=== PATIENT | female | born 1975 | race Caucasian/White ===

== ENCOUNTER → 2020-12-04 10:20 | Outpatient (CLI) | payer OTHER, SELFPAY ==
[2020-11-24 08:12] VITALS: BMI 43.5
== END ==
PROVIDERS: PCP Student in an Organized Health Care Education/Training Program; Referring Provider Nurse Practitioner Acute Care; Visit Provider Nurse Practitioner Acute Care
DX: G47.33 Obstructive sleep apnea (adult) (pediatric) (principal)
CPT/HCPCS: 95806

== ENCOUNTER 2022-01-07 10:31 | Day surgery (SDC) | payer OTHER, SELFPAY ==
--- NOTE | 2021-12-30 12:49 | PCM.HP.BLA ---
History and Physical Date of Admission: 01/07/22 Pre-Op History and Physical ? HPI: The patient is a 46 year old female presenting for surgical discussion for abnormal uterine bleeding endometrial polyp. Patient reports had heavy bleeding where she was soaking through overnight pads. Patient states no bleeding today. Pelvic ultrasound showed a large endometrial polyp present. Patient reports does not currently use any hormonal therapy. Patient declines any hormonal therapy like a Mirena IUD at the time of surgery. Patient would like to proceed with surgical intervention. ? Pre-operative visit. She is scheduled for Hysteroscopy D&C and polypoectomy, for AUB, EM polyp on 01/08/22. Procedure discussed along with risks, benefits and complications. Other alternatives discussed for management. Consent form signed? Yes. ? ? PAST MEDICAL HISTORY PAST MEDICAL HISTORY Diagnosis Date ? Anemia 08/07/2012 ? Attention deficit disorder without mention of hyperactivity ? ? since age 2 ? Breast disorder age 17 ? PREVIOUS NEEDLE BIOPSY OF BREAST ? Celiac disease ? ? Depressive disorder, not elsewhere classified ? ? MOOD SWINGS ? FRACTURE TOE ? ? History of pre-eclampsia in prior , currently ? ? Pityriasis versicolor ? ? PMH - PAST MEDICAL HISTORY OF 04/09 ? 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 PMH - PAST MEDICAL HISTORY OF ? ? blood type: B pos ? PREECLAMPSIA 1996 ? Rosacea ? ? Thyroid disease 2011 ? HOSHIMOTOS SYNDROME ? ? PAST SURGICAL HISTORY PAST SURGICAL HISTORY Procedure Laterality Date ? LIVER BIOPSY ? 04/2014 ? benign ? PAST SURGICAL HISTORY OF ? 1991 ? needle biopsy of breast mass ? REM LESION TRUNK,ARM,LEG 0.6 -1.0CM ? 05/08 ? excision atypical nevus pubis/ Dr. Alonso ? ? ? CURRENT MEDICATIONS Current Outpatient Medications Medication Sig Dispense Refill ? Ferrous Sulfate (SLOW FE) 142 mg (45 mg iron) TbER Take 1 tablet by mouth twice daily. 120 tablet 0 ? iron bis-gly/FA/C/B12/Ca/succ (IRON-150 ORAL) Take by mouth. ? ? ? calcium carbonate/vitamin D3 (CALCIUM 500 + D ORAL) Take by mouth. ? ? ? hydroCHLOROthiazide 12.5 mg capsule Take 1 capsule by mouth once daily. 30 capsule 2 ? levothyroxine (SYNTHROID) 137 mcg tablet Take 1 tablet by mouth once daily. 90 tablet 3 ? methylphenidate (RITALIN) 20 mg tablet Take 1 tablet by mouth twice daily for 30 days. 60 tablet 0 ? triamcinolone acetonide (KENALOG) 0.1 % cream Apply 1 application to affected area twice daily. 60 g 1 ? PNV95/FERROUS FUMARATE/FA ( ORAL) Take by mouth once daily. ? ? ? phentermine-topiramate ER (QSYMIA) 11.25-69 mg 24 Hr Capsule Take 1 capsule by mouth once daily for 30 days. BMI 44.42 30 capsule 2 ? No current facility-administered medications for this visit. ? ? ALLERGIES: Gluten ? PERSONAL HISTORY: SOCIAL HISTORY Social History ? Tobacco Use ? Smoking status: Former Smoker ? ? Years: 2.00 ? ? Quit date: 09/14/1995 ? ? Years since quittin.3 ? Smokeless tobacco: Never Used Vaping Use ? Vaping Use: Never used Substance Use Topics ? Alcohol use: No ? Drug use: No ? FAMILY HISTORY: FAMILY HISTORY FAMILY HISTORY Problem Relation Age of Onset ? Breast Cancer Mother 50 ? 2000,2018 ? Colon Polyps Father ? ? Hypertension Father ? ? Stroke Maternal Grandmother ? ? Psychiatry Maternal Grandfather ? ? dementia ? other (parkinsons) Maternal Grandfather ? ? Cancer Paternal Grandmother ? ? OVARIAN ? Stroke Paternal Grandfather ? ? other (DEMENTIA) Paternal Uncle ? ? LEWY BODY DEMENTIA ? Breast Cancer Other ? ? MATERNAL COUSIN 2004 ? other (FRONTAL LOBE ATROPHY) Other ? ? 2ND COUSIN ? other (myasthemia gravis) Other ? ? cousin ? ? REVIEW OF SYMPTOMS: negative except as noted above PHYSICAL EXAMINATION: ? VITALS: Blood pressure 128/78, weight 284 lb (128.8 kg), last menstrual period 12/17/2021. ? GENERAL: The patient is well nourished, well hydrated in no acute distress. , NEURO: The patient is oriented to time, place, and person. ? ? IMPRESSION: AUB, EM polyp ? PLAN: Hysteroscopy, D&C, Polypectomy ? Pt has been counseled on risks/benefits and alternatives of surgery including but not limited to anesthesia, bleeding, infection, Uterine perforation with subsequent injury to pelvic structures including bowel, bladder, ureters and vessels. Pt wishes to proceed with surgery at this time. ? Pt declines Mirena IUD or other BC options at this time ? Pre and post op instructions reviewed ? ? ? I have reviewed and updated past medical and surgical history, medications and allergies Mansi Díaz MD ?8:33 AM
[2022-01-07] VITALS (7 sets, daily range): BP systolic 130–169; BP diastolic 72–95; PULSE 63–73; RESP 16–17; TEMP 36.3–36.8; O2SAT 99–100; BMI 44.9
[2022-01-07 11:13] LABS: Internal QC Validated? YES +Cl - CLEAR BKGD; Pregnancy, Urine Negative Negative
[2022-01-07] MEDS: 0.9% Normal Saline 1,000 ML 150 ML IV (11:20)
--- NOTE | 2022-01-07 12:00 | EMB_PTH ---
PATIENT: AMOR MONSON LOC: [facility] [place] U#:[id number] AGE/SX: 46/F ROOM: RE01/07/[address]: Dr. Mansi Buenrostro, MDDOB: 1975 BED: DIS: 01/07/2022 SPEC #: [id number] RECD: 01/07/22 13:06 STATUS: PIERCE CARLEEN #: [id number] DELIA: 01/07/22 12:[address]: Mansi Buenrostro DEPT: SURGICAL PATHOLOGY RECD BY: Jaylene Hooker ENTERED: 01/07/22 13:48 SP TYPE: ENDOM BX/C ABEL DR: Dr. Dilip Murguia, DO Tissues: Endometrium, NOS Procedures: Surgery Specimen Level IV HEADER OPERATION: Hysteroscopy, D & C Symphion, polypectomy PRE-OP DIAGNOSIS: Abnormal uterine bleeding, endometrial polyp TISSUE SUBMITTED: Endometrial curettings and polyp MICROSCOPIC DIAGNOSIS Endometrial curettings and polyp: Polypoid fragments of simple hyperplasia without atypia. AM:isabela 01/08/2022 MICROSCOPIC DESCRIPTION Slides are reviewed. GROSS DESCRIPTION Received in fixative is one container labeled with the patient's name and designated endometrial curettings and polyp. The specimen consists of multiple irregular fragments of light pink-mayfield soft tissue that in aggregate measure 9 x 6 x 0.2 cm. The specimen is totally submitted in three cassettes. / AM:isabela 01/07/2022 TC:5 CPT: 05706
--- NOTE | 2022-01-07 12:01 | EX.PCM.DISCH ---
Discharge Instructions Procedure D&C Diet Discharge Diet: No restrictions Activity May resume sexual activity in: 1 week Dressing / Incision Call your doctor if you observe: Fever of 101 or Higher, Inability to urinate, Using more than 1 pad per hour and Uncontrolled pain Follow Up Care Please Follow Up With: Mansi Buenrostro MD When: 1-2 weeks post OP if you need an appointment please call [phone] Test Results: Test results from this visit will be discussed in further detail at your follow-up appointment, if applicable. Discharge Plan Admission Attending Provider: Mansi Buenrostro Primary Care Provider: Dilip Murguia Discharge Orders/Prescriptions Prescriptions: No Action levothyroxine 137 mcg capsule 137 mcg PO DAILY RF: 0 methylphenidate HCl [Ritalin] 5 mg tablet 20 mg PO DAILY PRN (Reason: focus) RF: 0 Slow Fe 142 mg (45 mg iron) Tablet Extended Release 142 mg PO BID RF: 0
--- NOTE | 2022-01-07 12:02 | OP.PCM_ITS ---
Problems Associated Problem List Diagnoses (1) Abnormal uterine bleeding (AUB): (2) Endometrial polyp: Report of Operation Date of Procedure: 01/07/22 Pre-Operative Diagnosis: aub, endometrial polyp Post-Operative Diagnosis: same, endocervical polyp Surgery/Procedure Performed:: hysteroscopy, D&C, polypectomy Description of Surgical Findings:: endometrial and enodcervical polyps noted Surgeon: Mansi Buenrostro Type of Anesthesia: MAC Specimen's removed: Endometrial curettings, endometrial polyp, endocervical polyp Drains: none Estimated Blood Loss (mL): <5 Fluids Replaced: 700 Description of Procedure: Informed consent was obtained the patient was taken the operating room she was placed in supine position. She was given anesthesia. She was then placed in the [facility] where she was prepped and draped in the normal sterile fashion. At this time the weighted speculum was placed in the posterior fornix of vagina. Single-tooth tenaculum was used to gently grasp the anterior lip the cervix. At this time the uterine cavity was sounded to approximately 9 cm. Gentle dilatation was performed once adequate dilatation of the cervix was achieved the hysteroscope using normal saline as a distention medium was placed. Tubal ostia visualized. Endometrial and endocervical polypoid tissue noted. Symphion resecting device used to obtain endometrial curettings and to perform polypectomy. Tissue will be sent to pathology for evaluation. Tenaculum removed. Good hemostasis. Instrument, lap count correct x 2. Fluid deficiet 500cc. Vaginal Sweep was negative. Grafts/Implants Used: none Procedure Start Time: 12:13 Procedure Stop Time: 12:27 Complications none Admit VTE Documentation VTE Present on Admission: Yes VTE Mechan Device Prophylaxis: SCD's VTE Pharm Prophylaxis ordered?: No Reason prophylaxis not ordered:: Procedure Not Indicated
== END 2022-01-07 13:37 | disposition home or self-care (01) ==
LOC: SDC 10:33 → AC 10:35
PROVIDERS: PCP Student in an Organized Health Care Education/Training Program; Referring Provider Obstetrics & Gynecology; Visit Provider Obstetrics & Gynecology
PROC: 0UB98ZZ Excision of Uterus, Via Natural or Artificial Opening Endoscopic (ICD-10-PCS; CPT 58558; principal; 2022-01-07 11:45)
DX: N85.01 Benign endometrial hyperplasia (principal); N84.1 Polyp of cervix uteri; N84.0 Polyp of corpus uteri; E03.9 Hypothyroidism, unspecified; G47.33 Obstructive sleep apnea (adult) (pediatric); Z79.899 Other long term (current) drug therapy; Z87.891 Personal history of nicotine dependence
CPT/HCPCS: 58558; 00952; 81025; 88305; J7030; J2405

== ENCOUNTER → 2022-11-12 | Outpatient (CLI) | payer OTHER, SELFPAY ==
--- NOTE | 2022-11-12 10:30 | BI_ITS ---
MAMMOGRAPHY - BILATERAL SCREENING 3-D TOMOSYNTHESIS REASON FOR EXAM: Female, 47 years old. Routine screening PERTINENT HISTORY: No significant family history. TECHNIQUE: 2-D mammograms and 3-D Tomosynthesis of the breast (s) were performed. CAD was performed. COMPARISON: 10/10/2020 FINDINGS: The breast composition is heterogeneously dense that can obscure small breast masses. Scattered benign calcifications are seen. No dense spiculated masses or suspicious microcalcifications are identified. No architectural distortion is identified. There is no skin thickening or retraction. Stable large calcification in the left breast. There has been no significant change since the prior study. BI/SCRN MAMM (CAD)W/MENA BILAT IMPRESSION: No mammographic signs of malignancy. Routine yearly mammograms recommended. ASSESSMENT CATEGORY: BIRADS Category 2: Benign. A letter regarding these results will be sent to the patient by the facility within 30 days. FOLLOW UP RECOMMENDATION: Yearly follow up mammogram recommended. (A) Approximately 10% of breast cancers are not detected by mammography. A normal mammogram should not delay biopsy of a clinically suspicious abnormality. Electronically Signed: Gilberto Grady MD at 8:42 EDT ,
== END | disposition home or self-care (01) ==
PROVIDERS: PCP Student in an Organized Health Care Education/Training Program; Referring Provider Nurse Practitioner Family; Visit Provider Nurse Practitioner Family
DX: Z12.31 Encounter for screening mammogram for malignant neoplasm of breast (principal)
CPT/HCPCS: 77063; 77067

== ENCOUNTER 2023-02-11 06:57 | Day surgery (SDC) | payer OTHER, SELFPAY ==
[2023-02-05 08:29] LABS: Absolute Lymphocyte Count 1.63 X10^3/uL (0.83-4.51); Absolute Neutrophil Count 4.9 X10^3/uL (2.0-7.7); Basophil# 0.03 X10^3/uL; Basophil% 0.4 % (0-1); Eosinophil# 0.13 X10^3/uL; Eosinophils% 1.8 % (0-5); Hematocrit 43.3 % (37-47); Hemoglobin 14.1 g/dL (12.0-15.0); Lymphocyte # 1.63 X10^3/ul (0.83-4.51); Mean Corp Hgb Conc 32.6 g/dL (32-36); Mean Corpuscular Volume 92.1 fL (81-99); Mean Platelet Vol. 9.5 fl (6.2-12.0); Monocyte# 0.35 X10^3/uL; Monocyte% 4.9 % (0-10); NRBC Flagged by Analyzer 0 % (0-5); Neutrophil # 4.92 X10^3/uL (2.7-7.7); Neutrophil % 69.6 % (47-70); Platelet Count 311 K/mm3 (150-450); RBC Distribution Width CV 12.6 % (11.6-14.6); RBC Distribution Width SD 42.8 fl (35.1-43.9); White Blood Count 7.1 K/mm3 (4.4-11.0)
[2023-02-05 08:59] LABS: Anion Gap 5 (5-15); BUN 19 mg/dL (7-18); BUN/Creat Ratio 24.2 RATIO (10-20); Calcium,Total 8.8 mg/dL (8.5-10.1); Chloride 108 mmol/L (98-107); Creatinine, Serum 0.79 mg/dL (0.55-1.02); EST Glomerular Filtration Rate 83 mL/min (>60); Est Glom Filt Rate - Afr Amer 100 mL/min (>60); Glucose 133 mg/dL (74-106); Magnesium 2.3 mg/dL (1.6-2.6); Potassium 3.8 mmol/L (3.5-5.1); Sodium Level 140 mmol/L (136-145); Thyroid Stim Hormone (TSH) 1.08 uIU/mL (0.358-3.74)
[2023-02-11] VITALS (9 sets, daily range): BP systolic 123–145; BP diastolic 73–93; PULSE 68–79; RESP 14–18; TEMP 36.3–36.8; O2SAT 93–100; BMI 37.0
--- NOTE | 2023-02-11 07:19 | PCM.HP.BLA ---
History and Physical Date of Admission: 02/11/23 Pre-Op History and Physical ? HPI: The patient is a 47 year old female presenting for pre-operative visit. She is scheduled for lavh, bilateral salpingectomy, cystoscopy, for aub, endometrial hyperplasia, uterine anomaly on 02/11/23. Procedure discussed along with risks, benefits and complications. Other alternatives discussed for management. Consent form signed? Yes. ? ? PAST MEDICAL HISTORY PAST MEDICAL HISTORY Diagnosis Date ? Anemia 08/07/2012 ? Attention deficit disorder without mention of hyperactivity ? ? since age 2 ? Breast disorder age 17 ? PREVIOUS NEEDLE BIOPSY OF BREAST ? Celiac disease ? ? Depressive disorder, not elsewhere classified ? ? MOOD SWINGS ? Fatty liver 12/22/2022 ? FRACTURE TOE ? ? History of pre-eclampsia in prior , currently ? ? Pityriasis versicolor ? ? PMH - PAST MEDICAL HISTORY OF 04/09 ? 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 PMH - PAST MEDICAL HISTORY OF ? ? blood type: B pos ? PREECLAMPSIA 1996 ? Rosacea ? ? Thyroid disease 2011 ? HOSHIMOTOS SYNDROME ? ? PAST SURGICAL HISTORY PAST SURGICAL HISTORY Procedure Laterality Date ? D&C, DIAG AND/OR THERAPEUTIC ? 01/07/2022 ? and polypectomy ? HYSTEROSCOPY ? 01/07/2022 ? LIVER BIOPSY ? 04/08/2014 ? benign ? PAST SURGICAL HISTORY OF ? 08/08/1991 ? needle biopsy of breast mass ? REM LESION TRUNK,ARM,LEG 0.6 -1.0CM ? 05/08/2001 ? excision atypical nevus pubis/ Dr. Alonso ? SKIN BIOPSY HX ? CURRENT MEDICATIONS Current Outpatient Medications Medication Sig Dispense Refill ? hydroCHLOROthiazide 12.5 mg capsule Take 2 capsules by mouth once daily. 30 capsule 2 ? levothyroxine (LEVOXYL) 150 mcg tablet Take 1 tablet by mouth once daily. Take on empty stomach. For Thyroid. 90 tablet 1 ? Ferrous Sulfate (SLOW RELEASE IRON) 142 mg (45 mg iron) TbER Take 1 tablet by mouth twice daily. 120 tablet 0 ? ketoconazole (NIZORAL) 2 % cream APPLY TO AFFECTED AREA(S) TWO TIMES A DAY DIRECTED 60 g 1 ? norethindrone (AYGESTIN) 5 mg tablet Take 1 tablet by mouth once daily. 30 tablet 5 ? iron bis-gly/FA/C/B12/Ca/succ (IRON-150 ORAL) Take by mouth. ? ? ? calcium carbonate/vitamin D3 (CALCIUM 500 + D ORAL) Take by mouth. ? ? ? triamcinolone acetonide (KENALOG) 0.1 % cream Apply 1 application to affected area twice daily. 60 g 1 ? PNV95/FERROUS FUMARATE/FA ( ORAL) Take by mouth once daily. ? ? ? No current facility-administered medications for this visit. ? ? ALLERGIES: Gluten ? PERSONAL HISTORY: SOCIAL HISTORY Social History ? Tobacco Use ? Smoking status: Former ? ? Years: 2.00 ? ? Types: Cigarettes ? ? Quit date: 09/14/1995 ? ? Years since quittin.3 ? Smokeless tobacco: Never Vaping Use ? Vaping Use: Never used Substance Use Topics ? Alcohol use: No ? Drug use: No ? FAMILY HISTORY: FAMILY HISTORY FAMILY HISTORY Problem Relation Age of Onset ? Breast Cancer Mother 50 ? 2001,2018 ? Colon Polyps Father ? ? Hypertension Father ? ? Stroke Maternal Grandmother ? ? Colon Cancer Maternal Grandfather ? ? Psychiatry Maternal Grandfather ? ? dementia ? other (parkinsons) Maternal Grandfather ? ? Cancer Paternal Grandmother ? ? OVARIAN ? Stroke Paternal Grandfather ? ? other (DEMENTIA) Paternal Uncle ? ? LEWY BODY DEMENTIA ? Breast Cancer Other ? ? MATERNAL COUSIN 2004 ? other (FRONTAL LOBE ATROPHY) Other ? ? 2ND COUSIN ? other (myasthemia gravis) Other ? ? cousin ? ? REVIEW OF SYMPTOMS: negative except as noted above PHYSICAL EXAMINATION: ? VITALS: Blood pressure 124/80, weight 240 lb (108.9 kg), last menstrual period 12/01/2022. ? GENERAL: The patient is well nourished, well hydrated in no acute distress. , The patient is oriented to time, place, and person. NECK: full range of motion LUNGS: Clear to auscultation bilaterally. no wheezes, rhonchi or rales HEART: Regular rate and rhythm, Normal heart sounds, and No murmurs or gallops ? ? IMPRESSION: 47-year-old female with history of abnormal uterine bleeding, uterine anomaly and endometrial hyperplasia ? PLAN: Laparoscopic assisted vaginal hysterectomy, bilateral salpingectomy and cystoscopy ? Pt has been counseled on risks/benefits and alternatives of surgery including but not limited to anesthesia, bleeding, infection, injury to pelvic structures including bowel, bladder, ureters and vessels. Pt wishes to proceed with surgery at this time. Risk for blood transfusion reviewed. Risk for cuff dehiscence. ? Pre and post op instructions reviewed. Pt declines any opioid pain medication post op. ? I have reviewed and updated past medical and surgical history, medications and allergies Mansi Díaz MD
[2023-02-11 07:28] LABS: Internal QC Validated? YES +Cl - CLEAR BKGD; Pregnancy, Urine Negative Negative
[2023-02-11] MEDS: Phenazopyridine 95 MG Tablet 190 MG PO (07:32)
[2023-02-11] MEDS: Gabapentin 600 MG Tablet PO (07:33)
[2023-02-11] MEDS: Acetaminophen 500 MG Tablet 1000 MG PO (07:33)
[2023-02-11] MEDS: Scopolamine 1mg/72hr Patch 1 PATCH TD (07:33)
[2023-02-11] MEDS: Magnesium 1 GM over 15 mins IV (07:33)
[2023-02-11] MEDS: Celecoxib 200 MG Capsule 400 MG PO (07:33)
[2023-02-11] MEDS: dexAMETHasone 4 MG/ML Vial 8 MG IV (07:37)
[2023-02-11] MEDS: Lactated Ringers 1,000 ML 15 ML IV ×2 (07:37→11:01)
[2023-02-11] MEDS: Enoxaparin 40 MG/0.4 ML Syringe SC (07:38)
[2023-02-11 07:58] LABS: Bedside Glucose 92 mg/dL (74-106)
--- NOTE | 2023-02-11 09:15 | HYST_PTH ---
PATIENT: AMOR MONSON LOC: [facility] [place] U#:[id number] AGE/SX: 47/F ROOM: RE02/11/[address]: Dr. Mansi Buenrostro, MDDOB: 1975 BED: DIS: 02/11/2023 SPEC #: [id number] RECD: 02/11/23 12:57 STATUS: PIERCE CARLEEN #: [id number] DELIA: 02/11/23 09:[address]: Mansi Buenrostro DEPT: SURGICAL PATHOLOGY RECD BY: Elizabeth Harding ENTERED: 02/11/23 13:45 SP TYPE: HYSTERECT OTHR DR: Dr. Dilip Murguia, DO Tissues: Uterus, NOS Procedures: Surgery Specimen Level V HEADER OPERATION: ERAS, hysterectomy, LAVH, salpingectomy, cystoscopy PRE-OP DIAGNOSIS: Abnormal uterine bleeding, endometrial hyperplasia, uterine anomaly TISSUE SUBMITTED: Uterus, cervix, bilateral tubes MICROSCOPIC DIAGNOSIS Uterus, hysterectomy: Cervix - chronic cystic cervicitis. Endometrium - inactive endometrium. Myometrium - intramural leiomyomas (largest measuring 2.5 cm in diameter). - focal adenomyosis. Bilateral fallopian tubes - no pathologic diagnosis. Paratubal cyst. SJ: 02/14/2023 COMMENT Please make reference to previous specimen [id number], endometrial curetting and polyp with diagnosis of polypoid fragment of simple hyperplasia without atypia. MICROSCOPIC DESCRIPTION Slides are reviewed. GROSS DESCRIPTION Received in fixative is one container labeled with the patient's name and designated uterus, cervix, bilateral tubes. The specimen consists of a hysterectomy specimen consisting of uterus with cervix and detached bilateral fallopian tubes. The uterus with cervix weighs 251 gm and measures 12.0 x 9.0 x 7.0 cm. The serosal surface is mayfield, glistening. The ectocervical mucosa is unremarkable. The external os is oval and patulous in contour. The endocervical canal measures 4.0 cm in length and the endocervical mucosa is mayfield, glistening and unremarkable. The endocervix reveals a few cysts filled with mucoid material. The triangular endometrial cavity measures 6.5 cm in length and 4.0 cm in width. The endometrium is mayfield, glistening without any mass lesion and measures 0.1 cm in thickness. Sections of the uterine wall reveal a nodular mass measuring 2.5 cm in diameter. Two smaller nodular masses are also noted measuring 0.3 and 0.5 cm in greatest dimension. Sections of these masses reveal mayfield whorled cut surfaces without areas of hemorrhage, necrosis or cystic degeneration. Sections of the uterine wall reveal trabeculated cut surfaces suspicious for adenomyosis. The uterine wall measures 3.0 cm in thickness. The fallopian tubes are not identified as right or left and measures 4.5 cm in length and 0.4 cm in diameter and 5.0 cm in length and 0.5 cm in diameter. One of the fallopian tubes also shows a paratubal cyst measuring 0.5 cm in greatest dimension. Sections of the fallopian tube reveal unremarkable cut surfaces. The fimbrial ends are identified. Supervisor Curing Room sections are submitted in nine cassettes as follows: 1 - anterior cervix, 2 - posterior cervix, 3 & 4 - anterior uterine wall, 5 & 6 - posterior uterine wall, 7 - nodular masses, 8 - one fallopian tube and paratubal cyst, 9 - second fallopian tube. / SHRUTHI:isabela 02/11/2023 TC:1 CPT: 36437
[2023-02-11] MEDS: Cefazolin 2 GM in 0.9% Normal Saline 100 ML IV (10:04)
[2023-02-11] MEDS: Lidocaine 1% /Epi 1:100 (20ml) 20 ML Vial (10:52)
[2023-02-11] MEDS: Bupivacaine Mpf 0.5% 30 ML VIAL (10:53)
--- NOTE | 2023-02-11 11:47 | OP.PCM_ITS ---
Report of Operation Date of Procedure: 02/11/23 Pre-Operative Diagnosis: AUB, Endometrial Hyperplaisa, Uterine Anomaly, Post-Operative Diagnosis: same Surgery/Procedure Performed:: LAVH, bilateral salpingectomy, cystoscopy Description of Surgical Findings:: Normal Tubes and ovaries bilateally. cystoscopy revealed intact bladder and bilateral efflux. Surgeon: Mansi Buenrostro Assistant: Sarita Banda Type of Anesthesia: General and Local Special Medications: 1% lidocaine with epinephrine and 0.5% MARCAINE. Specimen's removed: Uterus, cervix, bilateral fallopian tubes Drains: none Estimated Blood Loss (mL): 50 Fluids Replaced: 1200 Description of Procedure: Patient take to OR and prepped and draped in usual sterile fashion in dorsal lithotomy position with her arms tucked in a neurologically safe and neutral position. The uterus sounded to [7.5] cm. The [employer] uterine manipulator and honeycutt were placed. Attention was turned to the abdomen. All port sites were infiltrated with 0.5% maracaine before the incisions were made. The anterior abdominal wall was tented up with towel clamps and using a direct entry approach a 5 mm intraumbilical port was placed. Intraperitoneal placement was confirmed with the laparoscope and the pneumoperitoneum was created. The patient was placed in Trendelenburg and 5 mm right and left lower quadrant ports were placed under direct visualization. The bowel was swept away. Ovaries appeared normal. The mesosalpinx starting at fibriated end were grasped, clamped, sealed and transected with the Ligasure. The round ligaments were divided. The anterior peritoneum was dissected down to create the bladder flap with blunt dissection and the LigaSure. The uterine arteries were isolated, clamped, sealed and cut. There was minimal back bleeding from the uterus. Attention was turned to the vaginal portion of the case. The anterior and posterior vagina were infiltrated w/ lidocaine with dilute epinephrine. A circumferential incision was made with scalpel, anterior colpotomy was made with blunt and sharp dissection. The posterior culdesac was entered sharpy with curved jeff scissors. Heny clamps were placed, pedicles were transected and suture ligated. this was peformed on cardinal and uterosacral ligaments. Once the uterus was freed the specimen was removed without difficulty. The specimen was handed off. The cuff was closed with interrupted 0-vicryl figure of 8 sutures. Cystoscopy perfomed- both ureteral jets were appreciated and bladder was intact. The pneumoperitoneum was recreated and the cuff and pedicles were hemostatic. Linda placed over cuff. The skin incisions were closed with skin glue and 3-0 monocryl. The vaginal sweep was completed by me. Honeycutt cathter removed. Grafts/Implants Used: none Grafts/Implants Used: none Procedure Start Time: 10:31 Procedure Stop Time: 11:43 Complications none Admit VTE Documentation VTE Present on Admission: Yes VTE Mechan Device Prophylaxis: SCD's VTE Pharm Prophylaxis ordered?: No Reason prophylaxis not ordered:: Procedure Not Indicated
--- NOTE | 2023-02-11 11:52 | DCINST_ITS ---
Discharge Instructions Diet Discharge Diet: No restrictions Activity Discharge Activity: May Not Drive (while taking narcotics. may drive when pain controlled. ) and May Shower Return to work on:: 02/26/21 May shower in (days): 1 May resume sexual activity in: 6-8 weeks Weight Bearing Status: Full weight bearing Lifting Restrictions: 20 Additional Activity Instructions:: NOTHING IN THE VAGINA x 6-8 weeks. Dressing / Incision Call your doctor if your incision/area has: Continuous Slow Oozing, Sudden Increased Bleeding, Increased Pain/ Swelling, Increased Redness, Foul Smelling Discharge and Swelling at the incision site Call your doctor if you observe: Fever of 101 or Higher, Inability to have a bowel movement, Using more than 1 pad per hour and Uncontrolled pain Change Dressing in: leave in place till F/U (you have skin glue over incision sites- do not pick off) Cleanse incision/area with: Soap & Water, Keep Dressing Clean & Dry and - (you may let soap and water run over incision sites and dab dry. ) Follow Up Care Please Follow Up With: Mansi Buenrostro MD When: 2 weeks as scheduled for post op visit Test Results: Test results from this visit will be discussed in further detail at your follow- up appointment, if applicable. Discharge Plan Admission Attending Provider: Mansi Buenrostro Primary Care Provider: Dilip Murguia Discharge Orders/Prescriptions Prescriptions: No Action levothyroxine 137 mcg capsule 150 mcg PO DAILY methylphenidate HCl [Ritalin] 5 mg tablet 20 mg PO DAILY PRN (Reason: focus) Slow Fe 142 mg (45 mg iron) Tablet Extended Release 142 mg PO BID hydrochlorothiazide 12.5 mg capsule 25 mg PO DAILY norethindrone acetate 5 mg tablet 5 mg PO DAILY phentermine [Adipex-P] 37.5 mg capsule 37.5 mg PO DAILY Rx Instructions: must administer 30 minutes before or 1-2 hours after breakfast Gummies 400 mcg-35 mg- 25 mg-5 mg tablet,chewable 1 tab PO DAILY calcium carbonate-vitamin D3 500 mg-3.125 mcg (125 unit) tablet 1 tab PO DAILY magnesium citrate 100 mg capsule 200 mg PO DAILY Probiotic Digestive Care 20 billion cell capsule PO DAILY Referrals / Follow Up: Dilip Murguia DO [Primary Care Provider] - Disposition Disposition (needs filled in before D/C Order can be placed): Home, Self Care
[2023-02-11] MEDS: Lactated Ringers @ 70 MLS/HR 70 ML IV (12:31)
[2023-02-11 14:26] LABS: Hematocrit 42.7 % (37-47); Hemoglobin 13.7 g/dL (12.0-15.0); Mean Corp Hgb Conc 32.1 g/dL (32-36); Mean Corpuscular Hgb 29.9 pg (27.0-32.0); Mean Corpuscular Volume 93.2 fL (81-99); Mean Platelet Vol. 9.2 fl (6.2-12.0); Platelet Count 282 K/mm3 (150-450); RBC Distribution Width CV 12.3 % (11.6-14.6); RBC Distribution Width SD 42.4 fl (35.1-43.9); Red Blood Count 4.58 M/mm3 (4.2-5.4); White Blood Count 11.9 K/mm3 (4.4-11.0)
[2023-02-11] MEDS: Ketorolac 30 MG/ML Syringe IV (15:22)
== END 2023-02-11 16:21 | disposition home or self-care (01) ==
LOC: SDC 06:58 → AC 06:58
PROVIDERS: PCP Student in an Organized Health Care Education/Training Program; Referring Provider Obstetrics & Gynecology; Visit Provider Obstetrics & Gynecology
PROC: 0UT9FZZ Resection of Uterus, Via Natural or Artificial Opening With Percutaneous Endoscopic Assistance (ICD-10-PCS; CPT 58554; principal; 2023-02-11 08:50)
DX: D25.1 Intramural leiomyoma of uterus (principal); N80.03 Adenomyosis of the uterus; N83.8 Other noninflammatory disorders of ovary, fallopian tube and broad ligament; N72 Inflammatory disease of cervix uteri; G47.33 Obstructive sleep apnea (adult) (pediatric); E61.1 Iron deficiency; I10 Essential (primary) hypertension; Z79.899 Other long term (current) drug therapy; Z87.891 Personal history of nicotine dependence
CPT/HCPCS: 58554; 00840; 36415; 80048; 81025; 82962; 83735; 84443; 85025; 85027; 86850; 86900; 86901; 88307; J7120; A4216; J2405; J3475

== ENCOUNTER → 2023-11-18 | Outpatient (CLI) | payer OTHER, SELFPAY ==
--- NOTE | 2023-11-18 07:20 | BI_ITS ---
MAMMOGRAPHY - BILATERAL SCREENING REASON FOR EXAM: Female, 48 years old. Routine annual screening examination. PERTINENT HISTORY: Mother with breast cancer. Remote left needle breast biopsy. TECHNIQUE: Digital bilateral breast mena (3D mammographic acquisition) in the CC and MLO projections. 2-D mediolateral oblique (MLO) and craniocaudad (CC) views of both breasts were obtained. CAD: Full Field Digital Mammography with Computer Added Detection was performed. COMPARISON: Comparison is made with prior study November 12, 2022. FINDINGS: Breast Composition: The breasts are heterogeneously dense, which may obscure small masses. There are no dominant masses or suspicious calcifications. Stable 9 mm calcified fibroadenoma in the medial inferior retroareolar region of the left breast. No other significant abnormalities are identified. There has been no significant change since the prior study. BI/SCRN MAMM (CAD)W/MENA BILAT IMPRESSION: Stable bilateral screening mammogram. Yearly follow-up mammogram recommended. (A) ASSESSMENT CATEGORY: BIRADS Category 2: Benign. A letter regarding these results will be sent to the patient by the facility within 30 days. Approximately 10% of breast cancers are not detected by mammography. A normal mammogram should not delay biopsy of a clinically suspicious abnormality. [id number] Electronically Signed: Terrell Neff MD at 8:32 EDT ,
== END | disposition home or self-care (01) ==
LOC: OPBI 07:18
PROVIDERS: PCP Student in an Organized Health Care Education/Training Program
DX: Z12.31 Encounter for screening mammogram for malignant neoplasm of breast (principal)
CPT/HCPCS: 77063; 77067

== ENCOUNTER → 2024-11-19 | Outpatient (CLI) | payer OTHER, SELFPAY ==
--- NOTE | 2024-11-19 07:30 | BI_ITS ---
EXAM: SCRN MAMM (CAD)W/MENA BILAT DATE: 11/19/2024 CLINICAL HISTORY: F, Age 49 y/o , SCREENING BREAST CANCER RISK ASSESSMENT: Has not been calculated TECHNIQUE: Bilateral screening digital breast tomosynthesis with 2D and 3D images. Computer aided detection. COMPARISON: Prior exam(s) dated mammogram dated 11/18/2023 and 11/12/2022. FINDINGS: TISSUE DENSITY: The breast tissue is heterogenously dense, which may obscure small masses. Bilateral Breast Mammographic Findings: There are no suspicious masses, suspicious clustered microcalcifications, architectural distortion or secondary signs of malignancy identified in either breast. A benign-appearing macrocalcification is seen in the left breast. BI/SCRN MAMM (CAD)W/MENA BILAT IMPRESSION: Right Breast: BIRADS 1 NEGATIVE. Left Breast: BIRADS 2 BENIGN FINDING. OVERALL FINAL ASSESSMENT: BIRADS 2 BENIGN FINDING RECOMMENDATION: Routine annual follow-up in 1 Year A letter with findings and recommendations will be mailed to the patient. Reading Location: [id number]
== END | disposition home or self-care (01) ==
LOC: OPBI 07:29
PROVIDERS: PCP Student in an Organized Health Care Education/Training Program; Referring Provider Student in an Organized Health Care Education/Training Program; Visit Provider Student in an Organized Health Care Education/Training Program
DX: Z12.31 Encounter for screening mammogram for malignant neoplasm of breast (principal)
CPT/HCPCS: 77063; 77067